=== PATIENT | female | born 1995 | race Caucasian/White ===

== ENCOUNTER 2016-11-12 15:30 | Emergency (ER) | payer BC ==
[~2016-11-12] VITALS: Ht 170.2 cm; Wt 68.0 kg
[2016-11-12] MEDS ORDERED: BACITRACIN ZINC OINT UDPKT TOP ONE (19:00)
[2016-11-12 19:30] VITALS: BP 119/88
== END 2016-11-12 19:57 | disposition home or self-care (01) ==
LOC: ER 15:55
DX: S01.21XA Laceration without foreign body of nose, initial encounter (principal); W54.0XXA Bitten by dog, initial encounter; Y93.89 Activity, other specified; Y92.89 Other specified places as the place of occurrence of the external cause; Y99.8 Other external cause status
CPT/HCPCS: 12011; 99283; Z7610